=== PATIENT | female | born 1935 | race Caucasian/White ===

== ENCOUNTER → 2017-07-18 | Outpatient (CLI) | payer MEDICARE, OTHER ==
[2017-07-18 09:36] LABS: ALANINE AMINOTRANSFERASE 33 U/L (9-52); ALBUMIN 4.4 g/dL (3.5-5.0); ALKALINE PHOSPHATASE 41 U/L (38-126); ANION GAP 12 (5-19); ASPARTATE AMINO TRANSFERASE 23 U/L (14-36); BILIRUBIN,DIRECT 0.2 mg/dL (0.0-0.4); BILIRUBIN,TOTAL 1.5 mg/dL (0.2-1.3); BLOOD UREA NITROGEN 25 mg/dL (7-20); CALCIUM 10.8 mg/dL (8.4-10.2); CARBON DIOXIDE 30 mmol/L (22-30); CHLORIDE 103 mmol/L (98-107); CHOLESTEROL 149.51 mg/dL (0-200); GLUCOSE 88 mg/dL (75-110); SODIUM 144.6 mmol/L (137-145); TRIGLYCERIDES 53 mg/dL (<150)
[2017-07-18 09:49] LABS: DIRECT LDL 70 mg/dL (<100)
== END ==
LOC: LAB 08:54
PROVIDERS: ATTEND Internal Medicine
DX: I25.10 Atherosclerotic heart disease of native coronary artery without angina pectoris (principal); I10 Essential (primary) hypertension; E78.4 Other hyperlipidemia; I34.0 Nonrheumatic mitral (valve) insufficiency; R42 Dizziness and giddiness; Z79.899 Other long term (current) drug therapy
CPT/HCPCS: 36415; 80053; 80061

== ENCOUNTER 2017-11-14 10:45 | Emergency (ER) | payer MEDICARE, OTHER ==
[2017-11-14] MEDS ORDERED: NORMAL SALINE 500 ML IV ONE (10:56)
[2017-11-14 11:24] LABS: ABSOLUTE EOSINOPHILS # (AUTO) 0.2 10^3/uL (0.0-0.6); ABSOLUTE LYMPHOCYTES (AUTO) 1.6 10^3/uL (0.5-4.7); ABSOLUTE MONOCYTES (AUTO) 0.5 10^3/uL (0.1-1.4); ABSOLUTE NEUT (AUTO) 4.1 10^3/uL (1.7-8.2); BASOPHILS % (AUTO) 0.6 % (0-2); EOSINOPHILS % (AUTO) 2.8 % (0-6); HEMATOCRIT 40.2 % (36.0-47.0); HEMOGLOBIN 13.6 g/dL (12.0-15.5); LYMPHOCYTES % (AUTO) 25.6 % (13-45); MEAN CORPUSCULAR HEMOGLOBIN 29.1 pg (27.0-33.4); MEAN CORPUSCULAR HGB CONC 33.8 g/dL (32.0-36.0); MEAN CORPUSCULAR VOLUME 86 fl (80-97); MONOCYTES % (AUTO) 7.5 % (3-13); PLATELET COUNT 175 10^3/uL (150-450); RED BLOOD COUNT 4.67 10^6/uL (3.72-5.28); RED CELL DISTRIBUTION WIDTH 13.1 % (11.5-14.0); SEGMENTED NEUTROPHILS % (AUTO) 63.5 % (42-78); TOTAL CELLS COUNTED % (AUTO) 100 %; WHITE BLOOD COUNT 6.4 10^3/uL (4.0-10.5)
[2017-11-14 11:48] LABS: ALANINE AMINOTRANSFERASE 25 U/L (9-52); ALKALINE PHOSPHATASE 45 U/L (38-126); ANION GAP 9 (5-19); ASPARTATE AMINO TRANSFERASE 25 U/L (14-36); BILIRUBIN,DIRECT 0.2 mg/dL (0.0-0.4); BILIRUBIN,TOTAL 1.5 mg/dL (0.2-1.3); BLOOD UREA NITROGEN 26 mg/dL (7-20); CALCIUM 9.8 mg/dL (8.4-10.2); CARBON DIOXIDE 30 mmol/L (22-30); CHLORIDE 105 mmol/L (98-107); CREATINE KINASE 155 U/L (30-135); GLUCOSE 135 mg/dL (75-110); LIPASE 67.9 U/L (23-300); POTASSIUM 3.5 mmol/L (3.6-5.0); SODIUM 144.3 mmol/L (137-145); TOTAL PROTEIN 6.5 g/dL (6.3-8.2)
--- NOTE | 2017-11-14 11:52 | RADIOLOGY REPORT (SQ) ---
EXAM DESCRIPTION: CT HEAD WITHOUT COMPLETED DATE/TIME: 11/14/2017 11:35 am REASON FOR STUDY: syncope COMPARISON: None. TECHNIQUE: Axial images acquired through the brain without intravenous contrast. Images reviewed wi th bone, brain and subdural windows. Additional sagittal and coronal reconstructions were generated. Images stored on PACS. All CT scanners at this facility use dose modulation, iterative reconstruction, and/or weight based d osing when appropriate to reduce radiation dose to as low as reasonably achievable (ALARA). [facility]: Dose Right [facility]: CareDose [facility]: Dose Right [facility]: Teradose 4D [facility]: Habeas RADIATION DOSE: 53.2 mGy. LIMITATIONS: None. FINDINGS: VENTRICLES: Normal size and contour. CEREBRUM: No masses. No hemorrhage. No midline shift. No evidence for acute infarction. Normal gra y/white matter differentiation. No areas of low density in the white matter. CEREBELLUM: No masses. No hemorrhage. No alteration of density. No evidence for acute infarction. EXTRAAXIAL SPACES: No fluid collections. No masses. ORBITS AND GLOBE: No intra- or extraconal masses. Normal contour of globe without masses. CALVARIUM: No fracture. PARANASAL SINUSES: No fluid or mucosal thickening. SOFT TISSUES: No mass or hematoma. OTHER: There are few tiny air bubbles in the cavernous sinuses bilaterally on axial images 11-13. Th is could be iatrogenic air related to an IV catheter. No basilar skull fracture or air-fluid level i n the sphenoid sinus worrisome for sphenoid sinusitis. Mastoid air cells and middle ear cavities are clear. IMPRESSION: Probable iatrogenic air in the cavernous sinuses. Otherwise unremarkable study. No CT evidence of acute ischemic change, acute intracranial hemorrhage , mass effect, or midline shift. EVIDENCE OF ACUTE STROKE: NO. COMMENT: Quality ID # [id number]: Final reports with documentation of one or more dose reduction techniques (e.g., Automated exposure control, adjustment of the mA and/or kV according to patient size, use of iterative reconstruction technique) TECHNICAL DOCUMENTATION: JOB ID: [id number] [employer]- All Rights Reserved Reading location - IP/workstation name: [email or web address]
[2017-11-14 11:59] LABS: CREATINE KINASE MB 3.01 ng/mL (<4.55)
[2017-11-14 12:01] LABS: TROPONIN I < 0.012 ng/mL
[2017-11-14 12:49] LABS: APPEARANCE,URINE CLEAR; BILIRUBIN,URINE NEGATIVE (NEGATIVE); COLOR,URINE YELLOW; GLUCOSE, URINE NEGATIVE (NEGATIVE); KETONES,URINE NEGATIVE (NEGATIVE); LEUKOCYTE ESTERASE,URINE NEGATIVE (NEGATIVE); NITRITE,URINE NEGATIVE (NEGATIVE); PROTEIN,URINE NEGATIVE (NEGATIVE); URINE SPECIFIC GRAVITY 1.017; UROBILINOGEN,URINE NEGATIVE mg/dL (<2.0)
[2017-11-14 13:23] VITALS: BP 131/51
--- NOTE | 2017-11-14 14:37 | ER Document Report ---
ED General - General Chief Complaint: General Weakness Stated Complaint: WEAKNESS/NEAR SYNCOPE Time Seen by Provider: 11/14/17 10:49 TRAVEL OUTSIDE OF THE [place] IN LAST 30 DAYS: No - HPI Patient complains to provider of: Generalized weakness possible syncope Notes: Patient coming in today for possible near syncopal episode. Patient states she was cutting up strawberries she started feel weak and dizzy fell on her right hip no loss consciousness but did hit her head. Patient denies any chest pain abdominal pain prior to during or after the fall. Patient upon my evaluation is resting possibly. Patient states this is second time this happened approximately 2 weeks. Patient denies any changes to her medications. Upon my evaluation patient is resting comfortably denies any other symptoms. Patient denies any hip pain abdominal pain chest pain numbness or tingling. Patient denies any changes in her diet. - Related Data Allergies/Adverse Reactions: sulfamethoxazole [From [facility]] Allergy (Verified 02/11/12 11:12) swelling trimethoprim [From [facility]] Allergy (Verified 02/11/12 11:12) swelling Past Medical History - Social History Smoking Status: Unknown if Ever Smoked Chew tobacco use (# tins/day): No Frequency of alcohol use: None Drug Abuse: None Family History: Reviewed & Not Pertinent Patient has suicidal ideation: No Patient has homicidal ideation: No - Past Medical History Cardiac Medical History: Reports: Hx Hypertension Denies: Hx Heart Attack Pulmonary Medical History: Denies: Hx Asthma Neurological Medical History: Denies: Hx Cerebrovascular Accident, Hx Seizures Renal/ Medical History: Denies: Hx Peritoneal Dialysis GI Medical History: Denies: Hx Hepatitis, Hx Hiatal Hernia, Hx Ulcer Infectious Medical History: Denies: Hx Hepatitis Past Surgical History: Reports: Hx Hysterectomy. Denies: Hx Mastectomy, Hx Open Heart Surgery, Hx Pacemaker Review of Systems - Review of Systems Constitutional: Weakness EENT: No symptoms reported Cardiovascular: Dyspnea Respiratory: No symptoms reported Gastrointestinal: No symptoms reported Genitourinary: No symptoms reported Female Genitourinary: No symptoms reported Musculoskeletal: No symptoms reported Skin: No symptoms reported Hematologic/Lymphatic: No symptoms reported Neurological/Psychological: No symptoms reported -: Yes All other systems reviewed and negative Physical Exam - Vital signs Vitals: Resp Pulse Ox 18 96 11/14/17 10:54 11/14/17 10:54 Interpretation: Normal - General General appearance: Appears well, Alert - HEENT Head: Normocephalic, Atraumatic Eyes: Normal Pupils: PERRL - Respiratory Respiratory status: No respiratory distress Chest status: Nontender Breath sounds: Normal Chest palpation: Normal - Cardiovascular Rhythm: Regular Heart sounds: Normal auscultation Murmur: No - Abdominal Inspection: Normal Distension: No distension Bowel sounds: Normal Tenderness: Nontender Organomegaly: No organomegaly - Back Back: Normal, Nontender - Extremities General upper extremity: Normal inspection, Nontender, Normal color, Normal ROM , Normal temperature General lower extremity: Normal inspection, Nontender, Normal color, Normal ROM , Normal temperature, Normal weight bearing. No: Maria's sign - Neurological Neuro grossly intact: Yes Cognition: Normal Orientation: AAOx4 [place] Coma Scale Eye Opening: Spontaneous [place] Coma Scale Verbal: Oriented [place] Coma Scale Motor: Obeys Commands [place] Coma Scale Total: 15 Speech: Normal Motor strength normal: LUE, RUE, LLE, RLE Sensory: Normal - Psychological Associated symptoms: Normal affect, Normal mood - Skin Skin Temperature: Warm Skin Moisture: Dry Skin Color: Normal Course - Re-evaluation Re-evalutation: 11/14/17 15:34 CT scan results were discussed with the radiologist. Due to IV insertion more likely iatrogenic air that was seen in the venous sinus however no other acute pathology. Patient remained neurologically intact during her stay here. Patient does not have any change in her orthostatics however heart rate also remained the same. Patient's EKG does show sinus bradycardia patient was monitored here in ER with no significant pathology patient was ambulated in ER without difficulty. I was notified by the nurse and patient possibly had a pause dropping her heart rate into the 30s however patient denies having any symptoms of dizziness lightheadedness or feeling like she was on pass out while she was here in the ER concern it more likely patient's episode today was caused by her beta-meagan. Did recommend to the patient to hold her beta- meagan until following up with her insurance risk analyst. I did attempt to call her insurance risk analyst partner Dr. Meza patient sees Dr. Abram Benson however had not received any return phone calls. Did discuss with the patient about possible admission is that she is at risk for fall possible fracture outpatient states she rather be discharged home. Patient can hold her medications at this time a 3 ablating around the ER she is asymptomatic I feel this is appropriate treatment. - Vital Signs Vital signs: Temp Pulse Resp BP Pulse Ox 55 L 15 131/51 H 97 11/14/17 11:21 11/14/17 13:02 11/14/17 13:02 11/14/17 13:02 - Laboratory Result Diagrams: 11/14/17 10:56 11/14/17 10:56 Laboratory results interpreted by me: 11/14/17 11/14/17 10:56 12:12 Potassium 3.5 L BUN 26 H Glucose 135 H Total Bilirubin 1.5 H Creatine Kinase 155 H Urine Blood SMALL H Discharge - Discharge Clinical Impression: Near syncope, Sinus bradycardia Condition: Good Disposition: HOME, SELF-CARE Instructions: Near Syncopal Episode ([facility]) Additional Instructions: Your laboratory studies today did not show any significant reason for your and your syncopal episode today. While being in the ER your heart rate has been on the slower side more likely related to the medication of atenolol that you take. At this time he was able to ambulate around the ER without difficulty. I would highly recommend to hold the atenolol medication until you follow-up with your insurance risk analyst or primary care physician. Please make sure you drink plenty water move around slowly while at home return to ER for any concerns. Referrals: BARI AKINS MD [Primary Care Provider] - Follow up as needed
--- NOTE | 2017-11-14 20:16 | EKG REPORT ---
SEVERITY:- ABNORMAL ECG - SINUS BRADYCARDIA FIRST DEGREE AV BLOCK LEFT BUNDLE BRANCH BLOCK : Confirmed by: Didier Alonso 14-Nov-2017 20:14:58
== END 2017-11-14 15:09 | disposition home or self-care (01) ==
LOC: ER 10:45
DX: R55 Syncope and collapse (principal); R00.1 Bradycardia, unspecified; R53.1 Weakness; R06.00 Dyspnea, unspecified; I10 Essential (primary) hypertension; Z88.1 Allergy status to other antibiotic agents
CPT/HCPCS: 93005; 99285; 96360; 36415; 82553; 82550; 83690; 83735; 85025; 80053; 81001; 84484; 70450; 93010; J7040

== ENCOUNTER → 2018-02-06 | Outpatient (CLI) | payer MEDICARE, OTHER ==
[2018-02-06 09:09] LABS: ALANINE AMINOTRANSFERASE 30 U/L (9-52); ALBUMIN 4.3 g/dL (3.5-5.0); ALKALINE PHOSPHATASE 40 U/L (38-126); ANION GAP 12 (5-19); ASPARTATE AMINO TRANSFERASE 30 U/L (14-36); BILIRUBIN,DIRECT 0.2 mg/dL (0.0-0.4); BILIRUBIN,TOTAL 1.3 mg/dL (0.2-1.3); BLOOD UREA NITROGEN 28 mg/dL (7-20); CALCIUM 9.9 mg/dL (8.4-10.2); CARBON DIOXIDE 26 mmol/L (22-30); CHLORIDE 105 mmol/L (98-107); GLUCOSE 99 mg/dL (75-110); POTASSIUM 4.2 mmol/L (3.6-5.0); SODIUM 143.4 mmol/L (137-145); TRIGLYCERIDES 49 mg/dL (<150)
[2018-02-06 09:20] LABS: DIRECT LDL 63 mg/dL (<100)
== END ==
LOC: LAB 08:22
PROVIDERS: ATTEND Internal Medicine
DX: I25.10 Atherosclerotic heart disease of native coronary artery without angina pectoris (principal); I10 Essential (primary) hypertension; E78.4 Other hyperlipidemia; I34.0 Nonrheumatic mitral (valve) insufficiency; R42 Dizziness and giddiness; Z79.899 Other long term (current) drug therapy
CPT/HCPCS: 36415; 80053; 80061